=== PATIENT | male | born 1935 | race Caucasian/White ===

== ENCOUNTER 2016-07-17 13:38 | Emergency (ER) | payer MEDICARE, OTHER ==
--- NOTE | ~2016-07-17 | ER ---
PATIENT'S NAME: ROSY HEARD [facility] AGE: 80 Y [address] ROOM: [place] [address] LOCATION: [facility] ADMIT DATE: 07/17/2016 ER/Outpatient Report DISCHARGE DATE: 07/17/2016 FAMILY PHYSICIAN: Shiela Salgado MD ATTENDING PHYSICIAN: Tavon Mederos TIME OF ARRIVAL: 1338 hours. TIME OF EVALUATION: 1340 hours. CHIEF COMPLAINT: Chest pain. HISTORY OF PRESENT ILLNESS: The patient is an 80-year-old male who presents to the emergency department today with a chief complaint of chest pain. He reports this started about 2 weeks prior to arrival. The patient reports he has had a sharp stabbing type pain in the left midchest. He reports that it started this morning about 8 o'clock. It is worse with movement. It is worse with deep breath. No sweating or nausea. Pain is currently 9/10 in severity. Denies any fevers or chills. No nausea or vomiting. No diarrhea or constipation. No shortness of breath. PAST MEDICAL HISTORY: Prostate cancer with mets to C3, hard of hearing, and kidney stones. PAST SURGICAL HISTORY: Reports none. SOCIAL HISTORY: The patient denies any tobacco, alcohol, or illicit drug use. ALLERGIES: NO KNOWN DRUG ALLERGIES. MEDICATIONS: Please see list. REVIEW OF SYSTEMS: All systems are reviewed by myself are negative with the exception of those discussed in HPI and past medical history. PHYSICAL EXAMINATION: PATIENT'S NAME: ROSY HEARD [facility] AGE: 80 Y [address] ROOM: [place] [address] LOCATION: [facility] ADMIT DATE: 07/17/2016 ER/Outpatient Report DISCHARGE DATE: 07/17/2016 FAMILY PHYSICIAN: Shiela Salgado MD ATTENDING PHYSICIAN: Tavon Mederos VITAL SIGNS: Weight 91 kg. Blood pressure 146/80, pulse 88, respiratory rate 16, temperature 98.3, and oxygen saturation 94% on room air. GENERAL: The patient is an 80-year-old male, appears stated age, in mild acute distress, secondary to pain. HEENT: Normocephalic, atraumatic. Pupils are equal, round, and reactive to light and accommodation. Extraocular motions are intact. Nares are patent bilaterally. TMs are clear. Oropharynx is clear. NECK: Supple. There is no nuchal rigidity. CARDIOVASCULAR: Regular rate and rhythm. No murmurs, rubs, or gallops. LUNGS: Clear to auscultation bilaterally. No wheezes, rales, or rhonchi. ABDOMEN: Soft, nontender, and nondistended. No rebound, rigidity, or guarding. MUSCULOSKELETAL: The patient moves all 4 extremities. SKIN: Warm and dry. There are no rashes or lesions noted. LABS AND X-RAYS: Labs and x-rays are obtained. EKG is obtained, interpreted by myself, shows sinus rhythm with a rate of 77, left axis deviation, normal interval. No ST- elevation, ST-depression, or T-wave inversions. CBC: White blood cell count 11.4, otherwise normal. CMP is unremarkable. LFTs are normal. Mag is normal. CK and CK-MB is normal. Troponin is normal. BNP is normal. Coags are normal. CT scan of the chest is unremarkable. There is no evidence of PE. A 2-hour cardiac enzymes are normal. A 2-hour EKG is obtained, interpreted by myself, is unchanged. CT scan of the chest is reviewed by myself and there does appear to be a metastatic lesion in the rib on the anterior aspect on the left-side. IMPRESSION: 1. 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 2. Prostate cancer with metastasis. 3. Initial visit. EMERGENCY DEPARTMENT COURSE: The patient brought back to the examination room. Seen and evaluated by myself. IV is established. Laboratory analysis and imaging are obtained as described above. The patient is given 2 mg of morphine IV. He is given nitroglycerin. Nitroglycerin does no change into his symptoms. He was given baby aspirin as well. Repeat morphine was given as well as Toradol 30 IV with improvement in the patient's symptoms. I have discussed results with the patient's . There does appear to be metastatic lesion to the anterior ribs. I have discussed that with the radiologist. I have recommend a close followup with the patient's primary care doctor as well as Dr. Be. I have written a prescription for Mcloud elixir for home. I have discussed sedation warning. PATIENT'S NAME: ROSY HEARD [facility] AGE: 80 Y [address] ROOM: [place], [place] [address] LOCATION: [facility] ADMIT DATE: 07/17/2016 ER/Outpatient Report DISCHARGE DATE: 07/17/2016 FAMILY PHYSICIAN: Shiela Salgado MD ATTENDING PHYSICIAN: Tavon Mederos DISPOSITION: The patient is discharged home in good condition. DO ABEL KENNEDY/zaira /[id number] d: 07/17/16 2341 t: 07/18/16 0933, OUTPATIENT REPORT
[2016-07-17 14:09] LABS: BASOPHIL # 0.1 K/uL (0.0-0.2); BASOPHIL % 0.7 %; EOSINOPHIL # 0.1 K/uL (0.0-0.5); EOSINOPHIL % 0.8 %; HEMATOCRIT 39.7 % (33.0-50.0); HEMOGLOBIN 13.5 g/dL (11.0-16.0); IMMATURE GRANULOCYTE # 0.1 K/uL (0.0-0.3); IMMATURE GRANULOCYTE % 0.5 %; LYMPHOCYTE # 3.1 K/uL (0.8-4.0); LYMPHOCYTE % 26.9 %; MCH 31.8 pg (27.0-34.0); MCV 93.6 fl (83.0-98.0); MONOCYTE # 0.8 K/uL (0.0-1.0); MONOCYTE % 6.7 %; MPV 9.9 fl (9.4-12.4); NEUTROPHIL # (ANC) 7.4 K/uL (1.4-9.0); NEUTROPHIL % 64.4 %; NRBC % 0 /100WBC (0-0.00); PLATELET COUNT 242 K/uL (150-450); RBC 4.24 M/uL (3.50-5.50); RDW-CV 13.8 % (11.9-14.6); WBC 11.4 K/uL (4.0-11.0)
[2016-07-17 14:25] LABS: ALBUMIN 3.9 gm/dL (3.5-5.0); ALK PHOS 63 IU/L (33-138); ALT 20 IU/L (12-78); AST 16 IU/L (10-40); BLOOD UREA NITROGEN 21 mg/dL (6-24); CALCIUM 9.3 mg/dL (8.5-10.5); CHLORIDE 111 mMol/L (96-110); CO2 20 mMol/L (22-32); CPK 52 IU/L (35-332); ESTIMATED GFR (MDRD EQUATION) > 60; MAGNESIUM 2.2 mg/dL (1.8-2.6); SODIUM 142 mMol/L (135-145); TOTAL BILIRUBIN 0.6 mg/dL (0.0-1.5); TOTAL PROTEIN 7.2 g/dL (6.0-8.4)
[2016-07-17 14:38] LABS: INR - (THERAPEUTIC) 0.92 (0.92-1.07); PROTIME 9.6 SECONDS (9.8-11.4); PTT 24 SECONDS (25-32)
[2016-07-17 16:41] LABS: CPK 46 IU/L (35-332)
== END 2016-07-17 17:31 | disposition disaster alternative care site (69) ==
LOC: GMED 13:38
PROVIDERS: Emergency Medicine
DX: R07.89 Other chest pain (principal); C79.49 Secondary malignant neoplasm of other parts of nervous system; C79.51 Secondary malignant neoplasm of bone; Z85.46 Personal history of malignant neoplasm of prostate; Z87.442 Personal history of urinary calculi; Z79.899 Other long term (current) drug therapy
CPT/HCPCS: J1885; J2270; Q9967

== ENCOUNTER → 2016-07-20 | Outpatient (CLI) | payer MEDICARE, OTHER | END | disposition disaster alternative care site (69) | LOC: GRAD 09:27 | DX: C61 Malignant neoplasm of prostate (principal); M89.8X8 Other specified disorders of bone, other site | CPT/HCPCS: A9503 ==